=== PATIENT | male | born 2000 | race Caucasian/White ===

== ENCOUNTER → 2022-11-19 | Emergency (ER) | payer OTHER ==
[~2022-11-19] VITALS: Ht 193 cm; Wt 81.8 kg
[2022-11-19 18:57] VITALS: TEMP 99.9
[2022-11-19 19:24] VITALS: BP 124/76; PULSE 108
[2022-11-19 20:09] LABS: STREP SCREEN NEGATIVE
[2022-11-19 20:41] LABS: MONOSCREEN POSITIVE
== END ==
LOC: COL.ER 18:52
PROVIDERS: Emergency Medicine
DX: J02.9 Acute pharyngitis, unspecified (principal)